=== PATIENT | male | born 1980 | race Two or more races ===

== ENCOUNTER 2025-06-18 10:11 | Emergency (ER) | payer SELFPAY ==
[~2025-06-18] VITALS: Ht 175.3 cm; Wt 74.0 kg
[2025-06-18] MEDS: KETOROLAC TROMETH 60MG/2ML VIAL IM ONE (10:33)
[2025-06-18 10:38] VITALS: BP 113/83; PULSE 79; RESP 16; TEMP 97.9; O2SAT 96
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
[2025-06-18] MEDS ORDERED: CYCL-839 PO (10:50)
[2025-06-18] MEDS ORDERED: DICL50TA2 PO (10:50)
== END 2025-06-18 11:10 | disposition home or self-care (01) ==
LOC: ER 10:11
DX: M54.50 Low back pain, unspecified (principal); V43.52XA Car driver injured in collision with other type car in traffic accident, initial encounter; Y93.89 Activity, other specified; Y92.410 Unspecified street and highway as the place of occurrence of the external cause; Y99.8 Other external cause status
CPT/HCPCS: 96372; 99283; J1885